=== PATIENT | male | born 1975 | race Caucasian/White ===

== ENCOUNTER 2017-08-13 17:59 | Inpatient (IN) | payer SELFPAY ==
[~2017-08-13] VITALS: Ht 182.9 cm; Wt 64.0 kg
--- NOTE | 2017-08-13 | NUR ---
BP SLIGHTLY HIGH, BUT BETTER THAN PREVIOUS, OTHERWISE VITAL SIGNS WITHIN NORMAL LIMITS. PT STABLE, NO SIGNS OF DISTRESS NOTED AT THIS TIME. BED IN LOWEST POSITION, BED ALARM ON. CALL LIGHT WITHIN REACH, WILL CONTINUE TO MONITOR.
[2017-08-13 18:04] VITALS: BP 113/64
--- NOTE | 2017-08-13 18:11 | NUR ---
PT TAKEN BY WHEELCHAIR TO ER BED 07
--- NOTE | 2017-08-13 18:14 | NUR ---
REPORT GIVEN TO JESENIA LIANG
--- NOTE | 2017-08-13 18:20 | NUR ---
42m bib with c/o intermittent rectal bleeding/diarrhea and n/v x 2 wks. Patient he was diagnosed with colon cancer x 2 weeks. Patient also reports of fatigue and fevers. Patient is aox4 with steady gait. Skin is peri to touch/dry/pale. RR are even and unlabored. Patient is tachycardiac. Er md allan aware of patient status. Awaiting er md andrews. Will continue to monitor.
--- NOTE | 2017-08-13 18:20 | NUR ---
Patient reports of 7/10 "sharp" non radiating abdomen pain to all four quadrants.
[2017-08-13] MEDS ORDERED: NACL 0.9% 1,000 ML IV SCH (18:27)
[2017-08-13] MEDS ORDERED: ONDANSETRON 4 MG ODT PO ONE (18:30)
[2017-08-13] MEDS ORDERED: KETOROLAC 30 MG/ML VIAL IVP ONE (18:30)
--- NOTE | 2017-08-13 18:48 | NUR ---
xray by bedside
--- NOTE | 2017-08-13 19:02 | NUR ---
pt to ct via gabby accompanied by respiratory support technician
[2017-08-13 19:04] LABS: BASOPHILS % (AUTO) 0.2 % (0.0-2.0); EOSINOPHILS % (AUTO) 0.7 % (0.0-4.0); HEMATOCRIT 34.9 % (36-52); LYMPHOCYTES # (AUTO) 0.8 K/uL (2.0-11.5); LYMPHOCYTES % (AUTO) 12.3 % (20.5-51.1); MEAN CORPUSCULAR HEMOGLOBIN 30 pg (27-31); MEAN CORPUSCULAR HGB CONC 34 g/dL (33-37); MEAN CORPUSCULAR VOLUME 88.4 fL (80-94); MONOCYTES # (AUTO) 0.6 K/uL (0.8-1.0); MONOCYTES % (AUTO) 9.2 % (1.7-9.3); NEUTROPHILS % (AUTO) 77.6 % (42.2-75.2); PLATELET COUNT (AUTO) 216 K/uL (140-450); RED BLOOD CELL COUNT(AUTO) 3.95 MIL/uL (4.20-6.10); RED CELL DISTRIBUTION WIDTH 12.9 % (11.6-13.7); WHITE BLOOD COUNT (AUTO) 6.4 K/uL (4.8-10.8)
--- NOTE | 2017-08-13 19:07 | NUR ---
patient returned from ct via gurney accompanied by driver license technician
--- NOTE | 2017-08-13 19:09 | NUR ---
Pt report given to Concepcion BA. Transfer of care at this time.
[2017-08-13 19:10] LABS: ANION GAP 13.6 (8-16); CREATININE 0.9 mg/dL (0.7-1.3); POTASSIUM 3.6 mmol/L (3.5-5.1)
[2017-08-13 19:16] LABS: ALBUMIN 2.2 g/dL (3.4-5.0); TOTAL BILIRUBIN 0.4 mg/dL (0.0-1.0)
[2017-08-13] MEDS ORDERED: LEVOFLOXACIN 750 MG/D5W PREMIX 150 ML IV ONE (20:00)
[2017-08-13] MEDS ORDERED: VANCOMYCIN 1,000 MG in DEXTROSE 5% 250 ML IV ONE (20:00)
--- NOTE | 2017-08-13 20:00 | NUR ---
Patient appears to be resting comfortably in bed. Vital Signs within normal limits. Respirations even and unlabored.
[2017-08-13] MEDS ORDERED: VANCOMYCIN 1,000 MG VIAL ONE (20:06)
[2017-08-13] MEDS ORDERED: MORPHINE SULFATE 4 MG/ML SYR IVP PRN (20:40)
[2017-08-13] MEDS ORDERED: ONDANSETRON 4 MG/2 ML VIAL IM/IVP PRN (20:40)
[2017-08-13] MEDS ORDERED: DOCUSATE SODIUM 100 MG GELCAP PO PRN (20:40)
[2017-08-13] MEDS ORDERED: HYDROcodone/APAP 7.5/325 MG 1 TAB PO PRN (20:40)
--- NOTE | 2017-08-13 21:09 | NUR ---
Patient will be admitted to care of [facility]. Admited to TELE. Will go to room 119B. Belongings list completed. BEDSIDE Report to CHINO BA.
[2017-08-13 21:13] LABS: PROTHROMBIN TIME 11.3 secs (10.8-13.4)
--- NOTE | 2017-08-13 21:20 | NUR ---
PT ARRIVED VIA GURNEY TO UNIT, AND AMBULATED FROM HALLWAY TO BED. RECEIVED REPORT AT PT BEDSIDE FROM SENIOR ANALYST MARKET [employer]TELLIGENCE, FOR CONTINUITY OF CARE. PATIENT IS A/OX4 ON ROOM AIR. ABLE TO MAKE NEEDS KNOWN, ABLE TO FOLLOW COMMANDS. PT SKIN IS INTACT. PATIENT HAS IV TO RIGHT FOREARM, ASYMPTOMATIC, INTACT, PATENT. RESPIRATIONS EVEN AND UNLABORED. UPDATED BOARD. VITAL SIGNS WITHIN NORMAL LIMITS. PT STABLE, NO SIGNS OF DISTRESS NOTED AT THIS TIME. BED IN LOWEST POSITION, BED ALARM ON. CALL LIGHT WITHIN REACH, WILL CONTINUE TO MONITOR.
[2017-08-13 21:24] LABS: CHOL/HDL RATIO 3.5 (1-4.5); FREE T4 (FREE THYROXINE) 1.19 ng/dL (0.76-1.46); PHOSPHORUS 3.3 mg/dL (2.5-4.9); THYROID STIMULATING HORMONE 0.99 uIU/mL (0.34-3.74)
--- NOTE | 2017-08-13 21:50 | NUR ---
DR FRIEND PERFORMED RECTAL EXAM AND NOTIFIED PT THAT, THERE IS, IN FACT BLOOD IN HIS STOOL.
[2017-08-13] MEDS: NACL 0.9% 1,000 ML IV SCH (22:00)
[2017-08-13 23:07] VITALS: BP 101/64
[2017-08-14] VITALS (7 sets, daily range): BP systolic 102–124; BP diastolic 51–70
--- NOTE | 2017-08-14 04:00 | NUR ---
LOW GRADE FEVER OF 100.5, OTHER THAN THAT VITAL SIGNS WITHIN NORMAL LIMITS. WILL GIVE TYLENOL BOR BRAJDOEN PT STABLE, NO SIGNS OF DISTRESS NOTED AT THIS TIME. BED IN LOWEST POSITION, BED ALARM ON. CALL LIGHT WITHIN REACH, WILL CONTINUE TO MONITOR.
--- NOTE | 2017-08-14 04:00 | NUR ---
VITAL SIGNS WITHIN NORMAL LIMITS. PT STABLE, NO SIGNS OF DISTRESS NOTED AT THIS TIME. BED IN LOWEST POSITION, BED ALARM ON. CALL LIGHT WITHIN REACH, WILL CONTINUE TO MONITOR. Addendum: 08/14/17 at 0613 by Marian Ash RN WRONG INPUT
[2017-08-14 05:46] LABS: BASOPHILS % (AUTO) 0.1 % (0.0-2.0); EOSINOPHILS # (AUTO) 0.2 K/uL (0-0.4); EOSINOPHILS % (AUTO) 3.4 % (0.0-4.0); HEMATOCRIT 32.2 % (36-52); HEMOGLOBIN 11.1 g/dL (12.0-18.0); LYMPHOCYTES # (AUTO) 0.6 K/uL (2.0-11.5); LYMPHOCYTES % (AUTO) 8.7 % (20.5-51.1); MEAN CORPUSCULAR HEMOGLOBIN 31 pg (27-31); MEAN CORPUSCULAR HGB CONC 34 g/dL (33-37); MONOCYTES # (AUTO) 0.5 K/uL (0.8-1.0); MONOCYTES % (AUTO) 7.6 % (1.7-9.3); NEUTROPHILS # (AUTO) 5.4 K/uL (1.8-7.7); NEUTROPHILS % (AUTO) 80.2 % (42.2-75.2); PLATELET COUNT (AUTO) 197 K/uL (140-450); RED BLOOD CELL COUNT(AUTO) 3.61 MIL/uL (4.20-6.10); RED CELL DISTRIBUTION WIDTH 12.9 % (11.6-13.7); WHITE BLOOD COUNT (AUTO) 6.7 K/uL (4.8-10.8)
[2017-08-14 06:27] LABS: PHOSPHORUS 2.8 mg/dL (2.5-4.9)
[2017-08-14 06:31] LABS: ANION GAP 9.6 (8-16); CARBON DIOXIDE 29.3 mmol/L (21-32); CREATININE 0.8 mg/dL (0.7-1.3); POTASSIUM 3.9 mmol/L (3.5-5.1)
[2017-08-14] MEDS: ACETAMINOPHEN 325 MG TAB PO PRN ×2 (06:42→16:38)
--- NOTE | 2017-08-14 06:42 | NUR ---
ADMINISTERED TYLENOL FOR TEMP 101.5, INITIATED COOLING MEASURES.
--- NOTE | 2017-08-14 07:26 | NUR ---
ENDORSED PT TO DAY SHIFT RN FOR CONTINUITY OF CARE. PT IN STABLE CONDITION.
--- NOTE | 2017-08-14 08:00 | NUR ---
RECEIVED REPORT FROM CHINO BA FOR CONTINUITY OF CARE PT AWAKE A/OX4 NO S/S OF RESP DISTRESS NOTED NO COMPLAI OF PAIN ABLE TO MAKE NEEDS KNOWN. IV SITE RT AC GAUGE 20 INTACT AND PATENT. IVF INFUSING WELL . PLAN OF CARE DISCUSSED WITH THE PATIENT VITALS STABLE WILL CONTINUE TO MONITOR.
--- NOTE | 2017-08-14 09:00 | NUR ---
DUE MEDS GIVEN TOLERATED WELL. KEPT PATIENT NPO NO N/V . WAITING FOR DR TOMAS TO VISIT PATIENT.
[2017-08-14] MEDS: LACTOBACILLUS RHAMNOSUS GG 1 EACH CAP PO SCH (09:13)
--- NOTE | 2017-08-14 09:50 | NUR ---
PATIENT HAS BEEN SCREENED AND CATEGORIZED HIGH NUTRITION RISK. PATIENT WILL BE SEEN WITHIN 1-2 DAYS OF ADMISSION. 08/14/17 08/15/[address]
[2017-08-14] MEDS: NACL 0.9% 1,000 ML IV SCH ×2 (13:33→22:50)
--- NOTE | 2017-08-14 16:24 | NUR ---
PATIENT TEMP 102.8 TYLENOL 650 MG PO GIVEN WILL NOTIFY
--- NOTE | 2017-08-14 18:52 | NUR ---
SENT STOOL TO LAB FOR C-DIFF, WBC AND STOOL CULTURE , PATIENT HAS WHITISH STUFF ON HIS TONGUE NOTIFIED DR FUENTES. SAFETY MAINTAINED CALL LIGHT IN REACH
--- NOTE | 2017-08-14 19:15 | NUR ---
RECEIVED PT IN STABLE CONDITION FROM AM NURSE. AWAKE,ALERT AND ORIENTED X4. ON COMPUTER TESTER. NO C/O ANY DISCOMFORT NOR PAIN NOTED. HAS IVF INFUSING WELL ON THE RT AC #20. CLEAR AND PATENT. PLAN OF CARE DISCUSSED AND VERBALIZED UNDERSTANDING. BED ON LOW POSITION. CALL LIGHT AND URINAL PLACED WITHIN EASY REACH. ON CONTACT ISOLATION FOR R/O STOOL S DIFF. PT MADE AWARE ABOUT PRECAUTIONS. WILL CONITNUE TO MONITOR.
[2017-08-14] MEDS: LEVOFLOXACIN 750 MG/D5W PREMIX 150 ML IV SCH (20:04)
[2017-08-14] MEDS ORDERED: BACTRIM IV PER PHARMACY MC PRN (20:55)
[2017-08-14] MEDS ORDERED: PIPER/TAZO 3.375GM/D5W PREMIX 50 ML IV SCH (21:00)
--- NOTE | 2017-08-14 21:30 | NUR ---
PT TRANSFERRED TO ROOM 117 FOR AIRBORNE PRECAUTION PER MD ORDERED. PT MADE AWARE .
--- NOTE | 2017-08-14 22:30 | NUR ---
NEED SPUTUM SPECIMEN FOR AFB/ SMEAR,PNEUMOCYSTIS SMEAR AND CULTURE. CONTAINER PROVIDED AT BEDSIDE AND RT ALSO INSTRUCTED PT .
[2017-08-14] MEDS ORDERED: SULFAMETH/TRIMETH 80/16MG-ML 10 ML VIAL IV ONE (22:34)
[2017-08-14] MEDS: SULFAMETH IV SCH (22:50)
[2017-08-14] MEDS: TRIMETH IV SCH (22:50)
[2017-08-14] MEDS: DEXTROSE 5% IV SCH (22:50)
--- NOTE | 2017-08-15 02:00 | NUR ---
SLEEPING WELL. NO S/S OF ANY DISCOMFORT NOR PAIN NOTED. WILL CONTINUE TO MONITOR.
[2017-08-15 04:45] VITALS: BP 117/68
--- NOTE | 2017-08-15 04:45 | NUR ---
TEMP ELEVATED 100.6 TYLENOL 650 MFG PO GIVEN. ENCOURAGED TO DRINK FLUIDS. WILL CONTINUE TO MONITOR.
[2017-08-15] MEDS: ACETAMINOPHEN 325 MG TAB PO PRN (04:55)
[2017-08-15] MEDS: NACL 0.9% 1,000 ML IV SCH ×2 (05:58→23:35)
--- NOTE | 2017-08-15 06:00 | NUR ---
LATEST TEMP TAKNE RESULT 99.6. WILL CONTINUE TO MONITOR.
[2017-08-15] MEDS ORDERED: SULFAMETH/TRIMETH 80/16MG-ML 10 ML VIAL IV ONE (06:18)
[2017-08-15 06:22] LABS: T4 (THYROXINE) 8.3 ug/dL (4.5-12.0)
[2017-08-15] MEDS: TRIMETH IV SCH ×3 (06:31→23:58)
[2017-08-15] MEDS: SULFAMETH IV SCH ×3 (06:31→23:58)
[2017-08-15] MEDS: DEXTROSE 5% IV SCH ×3 (06:31→23:58)
--- NOTE | 2017-08-15 07:28 | NUR ---
ENDORSED PT IN STABLE CONDITION TO AM NURSE.
--- NOTE | 2017-08-15 07:29 | NUR ---
RECEIVED REPORT FROM NIGHT RN AT PT BEDSIDE. PATIENT IS ALERT AND ORIENTED. ON 1L NC, NO S/S OF ACUTE DISTRESS NOTED. DENIES PAIN. DENIES LOOSE BM. DISCUSSED WITH PATIENT CURRENT PLAN OF CARE, IN AGREEMENT, ALL NEEDS MET AT THIS TIME. IV SITE PATENT AND INTACT. CALL LIGHT WITHIN REACH.
[2017-08-15 08:00] VITALS: BP 106/65
[2017-08-15] MEDS: LACTOBACILLUS RHAMNOSUS GG 1 EACH CAP PO SCH (08:40)
[2017-08-15] MEDS ORDERED: FLUCONAZOLE 100 MG TAB PO SCH ×3 (09:00→10:00)
[2017-08-15] MEDS ORDERED: COMMUNICATION ORDER MC ONE (10:40)
--- NOTE | 2017-08-15 10:48 | NUR ---
REVIEWED AFB CULTURE ORDERED ADVISED DR. HEBER MARAVILLA THAT AN ORDER WAS PLACED FOR A ONE TIME ORDER FOR HYPERTONIC SOLUTION 3% VIA INH TO INDUCE SPUTUM STATES "THATS OK"
--- NOTE | 2017-08-15 11:08 | NUR ---
RECHECKED WITH PATIENT ON SPUTUM CULTURE FOR AFB PATIENT STATES I'M UNABLE TO PRODUCE. REVIEWED HYPERTONIC SOLUTION 3% TO INDUCE SPUTUM PATIENT STATES THAT'S FINE AND UNDERSTANDS SPECIMEN CUP REMAINS ON PATIENT TABLE
[2017-08-15 12:00] VITALS: BP 111/70
--- NOTE | 2017-08-15 12:42 | NUR ---
PATIENT TAKING SHOWER. NO S/S OF ACUTE DISTRESS NOTED. FAMILY AT BEDSIDE. PT OFF TELE MONITORING AT THIS TIME.
[2017-08-15] MEDS: SODIUM CHLORIDE 3% FOR INHALATION INH PRN ×2 (14:09→19:50)
--- NOTE | 2017-08-15 14:11 | NUR ---
08/15/17 RD INITIAL ASSESSMENT COMPLETED PLEASE REFER TO NUTRITION ASSESSMENT UNDER CARE ACTIVITY FOR ESTIMATED NUTRITIONAL NEEDS. 1. CONTINUE REGULAR DIET TOLERATED 2. RECOMMEND PROVIDING SNACKS TID. 3. RD TO FOLLOW-UP 2-3 DAYS, HIGH RISK SINDHU SELBY, RD
--- NOTE | 2017-08-15 14:20 | NUR ---
SPUTUM SPECIMEN CUP ON PATIENT TABLE ADVISED PATIENT THAT IF ANY SPUTUM IS PRODUCED TO PRESS CALL LIGHT AND INFORM ACCOUNTING SPECIALIST RN AND APPLIQUE SEWER TO CHECK OCCASIONALLY TO SPUTUM SAMPLE /RN NOTIFIED OF FOREMENTIONED AND SODIUM CHLORIDE 3% HHN THERAPY
--- NOTE | 2017-08-15 15:00 | NUR ---
PATIENT SPUTUM SAMPLE ONE OF THREE SENT TO LAB. MADE OF CURRENT PLAN OF CARE. IN AGREEMENT.
[2017-08-15 16:00] VITALS: BP 113/72
--- NOTE | 2017-08-15 19:11 | NUR ---
PT CURRENTLY EATING AT THIS TIME WILL COME BACK TO GIVE TX LATER.
--- NOTE | 2017-08-15 19:20 | NUR ---
SBAR REPORT GIVEN TO RN ROSS AT PT BEDSIDE. NO S/S OF ACUTE DISTRESS NOTED.
--- NOTE | 2017-08-15 19:21 | NUR ---
PATIENT REPORT RECEIVED FROM MORNING NURSE AT BEDSIDE. PATIENT IS AWAKE, ALERT AND ORIENTED. NO SIGNS AND SYMPTOMS OF DISTRESS NOTED. PATIENT ON O2 1L NC. IV SITE NOTED ON RIGHT ARM, IVF INFUSING WELL. PLAN OF CARE DISCUSSED WITH PATIENT. PATIENT VERBALIZED UNDERSTANDING. BED IN LOWEST POSITION, SIDE RAILS UP AND CALL LIGHT WITHIN REACH. AIRBORNE PRECAUTIONS IN PLACE. WILL CONTINUE TO MONITOR.
--- NOTE | 2017-08-15 19:50 | NUR ---
BREATHING TX DONE. EXPLAINED TO PT TO EXPECTORATE INTO SPUTUM CUP SO WE CAN GET A SAMPLE. LEFT CUP AT BEDSIDE. WILL CONT TO MONITOR PT.
[2017-08-15 20:00] VITALS: BP 108/64
[2017-08-15] MEDS ORDERED: LEVOFLOXACIN 750 MG/D5W PREMIX 150 ML IV ONE (20:04)
[2017-08-15] MEDS: LEVOFLOXACIN 750 MG/D5W PREMIX 150 ML IV SCH (20:12)
--- NOTE | 2017-08-15 21:00 | NUR ---
UNABLE TO GET DUE MEDS FROM [facility], HAD TO OVERRIDE. NOTIFIED PHARMACY.
--- NOTE | 2017-08-15 23:00 | NUR ---
PATIENT UNABLE TO EXPECTORATE SPUTUM AT THIS TIME. NOTIFIED RT. RT HAD TRIED TO INDUCE SPUTUM EARLIER, BUT PATIENT UNABLE TO EXPECTORATE. PATIENT STATES THAT HE'S BEEN ONLY HAVING DRY COUGH WITH NO PHLEGM.
[2017-08-16] VITALS: BP 107/61
[2017-08-16] MEDS ORDERED: ACETAMINOPHEN 325 MG TAB ONE ×2 (00:02→06:23)
[2017-08-16] MEDS: ACETAMINOPHEN 325 MG TAB PO PRN ×3 (00:07→16:36)
--- NOTE | 2017-08-16 00:45 | NUR ---
CHECKED ON PATIENT. PATIENT IS ASLEEP. NO SIGNS AND SYMPTOMS OF DISTRESS NOTED. WILL CONTINUE TO MONITOR.
[2017-08-16 05:30] VITALS: BP 104/72
[2017-08-16] MEDS: SULFAMETH IV SCH ×3 (06:10→23:31)
[2017-08-16] MEDS: TRIMETH IV SCH ×3 (06:10→23:31)
[2017-08-16] MEDS: DEXTROSE 5% IV SCH ×3 (06:10→23:31)
[2017-08-16 06:31] LABS: BASOPHILS % (AUTO) 0.2 % (0.0-2.0); EOSINOPHILS # (AUTO) 0.1 K/uL (0-0.4); HEMATOCRIT 32.2 % (36-52); LYMPHOCYTES # (AUTO) 0.9 K/uL (2.0-11.5); MEAN CORPUSCULAR HEMOGLOBIN 30 pg (27-31); MEAN CORPUSCULAR HGB CONC 34 g/dL (33-37); MEAN CORPUSCULAR VOLUME 88.9 fL (80-94); MONOCYTES # (AUTO) 0.5 K/uL (0.8-1.0); MONOCYTES % (AUTO) 8.3 % (1.7-9.3); NEUTROPHILS % (AUTO) 76.5 % (42.2-75.2); PLATELET COUNT (AUTO) 230 K/uL (140-450); RED BLOOD CELL COUNT(AUTO) 3.62 MIL/uL (4.20-6.10); RED CELL DISTRIBUTION WIDTH 13.1 % (11.6-13.7); WHITE BLOOD COUNT (AUTO) 6.6 K/uL (4.8-10.8)
[2017-08-16 06:40] LABS: ANION GAP 10.6 (8-16); CARBON DIOXIDE 25.6 mmol/L (21-32); CREATININE 0.9 mg/dL (0.7-1.3); POTASSIUM 4.2 mmol/L (3.5-5.1)
[2017-08-16 06:49] LABS: MAGNESIUM 1.8 mg/dL (1.8-2.4); PHOSPHORUS 3.6 mg/dL (2.5-4.9)
--- NOTE | 2017-08-16 07:16 | NUR ---
PT DOES NOT WANT ANYTHING DONE NOW PER JESENIA HURTADO AND WANTS TO SLEEP AT THE MOMENT. WILL TRY SPUTUM INDUCTION LATER.
--- NOTE | 2017-08-16 07:25 | NUR ---
RECEIVED PATIENT REPORT AT BEDSIDE. PATIENT AWAKE, ALERT AND ORIENTED. NO S/S OF DISTRESS. PATIENT IS CURRENTLY RECEIVING BREATHING TX. PATIENT DENIES PAIN. PATIENT ON TELE MONITORING. BED LOWERED WITH CALL LIGHT WITHIN REACH. WILL CONTINUE TO MONITOR
--- NOTE | 2017-08-16 07:38 | NUR ---
PATIENT REPORT GIVEN TO MORNING NURSE AT BEDSIDE. PATIENT IS IN STABLE CONDITION
[2017-08-16] MEDS: SODIUM CHLORIDE 3% FOR INHALATION INH PRN (07:52)
--- NOTE | 2017-08-16 07:56 | NUR ---
SPUTUM INDUCTION DONE WITH 3% SODIUM CHLORIDE HHN THERAPY. NO SOB OR DISTRESS NOTED. JESENIA ZHOU AT BEDSIDE. REINSTRUCTED PT TO GIVE A SPUTUM SAMPLE AND TO LET ME LOCK AND DAM EQUIPMENT REPAIRER KNOW WHEN HE HAS IT. SPECIMEN CUP AT BEDSIDE. PT VERBALIZED UNDERSTANDING BUT PT HAS NO FLEM AT MOMENT. JESENIA ZHOU AWARE.
[2017-08-16 08:00] VITALS: BP 99/62
--- NOTE | 2017-08-16 10:45 | NUR ---
PATIENT AWAKE IN HIS ROOM WATCHING TELEVISION. PATIENT REPORTS OF HAVING A BM. PATIENT DENIES BLOOD IN THE STOOL.
[2017-08-16] MEDS: LACTOBACILLUS RHAMNOSUS GG 1 EACH CAP PO SCH (10:54)
[2017-08-16] MEDS: FLUCONAZOLE 100 MG TAB PO SCH (10:54)
[2017-08-16 12:00] VITALS: BP 111/67
[2017-08-16 16:00] VITALS: BP 108/76
--- NOTE | 2017-08-16 16:36 | NUR ---
TEMP 101. PRN TYLENOL ADMINISTERED. COOLING MEASURES IN PLACE. WILL CONTINUE TO MONITOR
--- NOTE | 2017-08-16 18:45 | NUR ---
TEMP TAKEN ORALLY. TEMPERATURE 98.7. NO S/S OF DISTRESS NOTED
--- NOTE | 2017-08-16 19:30 | NUR ---
PATIENT REPORT GIVEN TO THE MODEL MAKER FIREARMS NURSE. PATIENT ENDORSED IN STABLE CONDITION
--- NOTE | 2017-08-16 19:31 | NUR ---
PATIENT REPORT RECEIVED FROM MORNING NURSE AT BEDSIDE. PATIENT IS AWAKE, ALERT AND ORIENTED. NO SIGNS AND SYMPTOMS OF DISTRESS NOTED. PATIENT ON O2 2L NC. IV SITE NOTED ON RIGHT ARM, IVF INFUSING WELL. PLAN OF CARE DISCUSSED WITH PATIENT. PATIENT VERBALIZED UNDERSTANDING. BED IN LOWEST POSITION, SIDE RAILS UP AND CALL LIGHT WITHIN REACH. AIRBORNE PRECAUTIONS IN PLACE. WILL CONTINUE TO MONITOR.
[2017-08-16 20:00] VITALS: BP 121/77
[2017-08-16] MEDS: NACL 0.9% 1,000 ML IV SCH (20:00)
[2017-08-16] MEDS: LEVOFLOXACIN 750 MG/D5W PREMIX 150 ML IV SCH (20:08)
--- NOTE | 2017-08-16 20:30 | NUR ---
MEDICATION EDUCATION GIVEN. MEDICATION ADMINISTERED ORDERED. PATIENT TOLERATING WELL. WILL CONTINUE TO MONITOR.
--- NOTE | 2017-08-16 23:00 | NUR ---
MEDICATION EDUCATION GIVEN. PATIENT VERBALIZED UNDERSTANDING. DUE ANTIBIOTICS GIVEN ORDERED. WILL CONTINUE TO MONITOR
[2017-08-17] VITALS: BP 104/61
--- NOTE | 2017-08-17 | NUR ---
CHECKED ON PATIENT. PATIENT IS ASLEEP. NO SIGNS AND SYMPTOMS OF DISTRESS NOTED. BREATHING EVEN AND UNLABORED. WILL CONTINUE TO MONITOR.
--- NOTE | 2017-08-17 02:30 | NUR ---
CHECKED ON PATIENT. PATIENT IS ASLEEP. NO SIGNS AND SYMPTOMS OF DISTRESS NOTED. BREATHING EVEN AND UNLABORED. WILL CONTINUE TO MONITOR.
[2017-08-17 05:30] VITALS: BP 108/59
[2017-08-17] MEDS: TRIMETH IV SCH ×3 (06:00→23:38)
[2017-08-17] MEDS: DEXTROSE 5% IV SCH ×3 (06:00→23:38)
[2017-08-17] MEDS: SULFAMETH IV SCH ×3 (06:00→23:38)
[2017-08-17] MEDS: ACETAMINOPHEN 325 MG TAB PO PRN ×2 (06:05→21:13)
[2017-08-17 06:36] LABS: BASOPHILS % (AUTO) 0.2 % (0.0-2.0); EOSINOPHILS % (AUTO) 0.5 % (0.0-4.0); HEMATOCRIT 33.7 % (36-52); HEMOGLOBIN 11.6 g/dL (12.0-18.0); LYMPHOCYTES # (AUTO) 0.9 K/uL (2.0-11.5); LYMPHOCYTES % (AUTO) 11.5 % (20.5-51.1); MEAN CORPUSCULAR HEMOGLOBIN 31 pg (27-31); MEAN CORPUSCULAR HGB CONC 34 g/dL (33-37); MEAN CORPUSCULAR VOLUME 88.5 fL (80-94); MONOCYTES # (AUTO) 0.5 K/uL (0.8-1.0); MONOCYTES % (AUTO) 6.6 % (1.7-9.3); NEUTROPHILS % (AUTO) 81.2 % (42.2-75.2); PLATELET COUNT (AUTO) 236 K/uL (140-450); RED CELL DISTRIBUTION WIDTH 12.8 % (11.6-13.7); WHITE BLOOD COUNT (AUTO) 7.4 K/uL (4.8-10.8)
[2017-08-17 06:43] LABS: ANION GAP 12.1 (8-16); CARBON DIOXIDE 24.4 mmol/L (21-32); CREATININE 0.8 mg/dL (0.7-1.3); POTASSIUM 4.5 mmol/L (3.5-5.1)
[2017-08-17 06:48] LABS: MAGNESIUM 1.7 mg/dL (1.8-2.4); PHOSPHORUS 2.3 mg/dL (2.5-4.9)
--- NOTE | 2017-08-17 07:17 | NUR ---
PATIENT REPORT GIVEN TO MORNING NURSE AT BEDSIDE. PATIENT IS IN STABLE CONDITION
[2017-08-17] MEDS: NACL 0.9% 1,000 ML IV SCH (07:58)
[2017-08-17 08:00] VITALS: BP 98/56
--- NOTE | 2017-08-17 08:00 | NUR ---
TEMP 100.4. NO S/S OF DISTRESS. PATIENT WAS GIVEN TYLENOL TWO HOURS AGO. COOLING MEASURES IN PLACE. WILL CONTINUE TO MONITOR.
[2017-08-17] MEDS: FLUCONAZOLE 100 MG TAB PO SCH (08:57)
[2017-08-17] MEDS: LACTOBACILLUS RHAMNOSUS GG 1 EACH CAP PO SCH (08:57)
--- NOTE | 2017-08-17 08:59 | NUR ---
TEMP RECHECKED ORALLY. TEMP 98.4. PATIENT DENIES PAIN OR DISCOMFORT. NO S/S OF DISTRESS NOTED. WILL CONTINUE TO MONITOR
[2017-08-17 12:00] VITALS: BP 112/63
[2017-08-17] MEDS: ALBUTEROL SULFATE/IPRATROPIU 3 ML SOL IH SCH ×2 (12:21→20:46)
--- NOTE | 2017-08-17 14:26 | NUR ---
08/17/17 RD FOLLOW UP COMPLETED PLEASE REFER TO NUTRITION PROGRESS NOTE UNDER CARE ACTIVITY FOR ESTIMATED NUTRITIONAL NEEDS. 1. CONTINUE REGULAR DIET WITH SNACKS TID TOLERATED 2. RECOMMEND BOOST PLUS GIVEN EVERY DAY AT DINNER. 3. RD TO FOLLOW-UP 3-5 DAYS, MODERATE RISK SINDHU SELBY, RD
[2017-08-17 16:00] VITALS: BP 123/80
--- NOTE | 2017-08-17 17:45 | NUR ---
PATIENT AWAKE IN BED EATING DINNER. FAMILY MEMBER PRESENT AT BEDSIDE. NO S/S OF DISTRESS NOTED
[2017-08-17] MEDS: SODIUM PHOS / POTASSIUM PHOS 1 PKT PDR PO SCH (18:43)
--- NOTE | 2017-08-17 19:30 | NUR ---
PATIENT REPORT GIVE TO THE BARREL DEDENTING MACHINE OPERATOR NURSE. PATIENT ENDORSED IN STABLE CONDITION
--- NOTE | 2017-08-17 19:31 | NUR ---
PATIENT REPORT RECEIVED FROM MORNING NURSE AT BEDSIDE. PATIENT IS AWAKE, ALERT AND ORIENTED. NO SIGNS AND SYMPTOMS OF DISTRESS NOTED. PATIENT ON O2 3L NC. IV SITE NOTED ON RIGHT ARM, SALINE LOCKED. PLAN OF CARE DISCUSSED WITH PATIENT. PATIENT VERBALIZED UNDERSTANDING. BED IN LOWEST POSITION, SIDE RAILS UP AND CALL LIGHT WITHIN REACH. AIRBORNE PRECAUTIONS IN PLACE. WILL CONTINUE TO MONITOR.
[2017-08-17 20:00] VITALS: BP 119/66
[2017-08-17] MEDS: BUDESONIDE 0.5 MG/2 ML NEBU INH SCH (20:46)
[2017-08-17] MEDS: LEVOFLOXACIN 750 MG/D5W PREMIX 150 ML IV SCH (20:52)
--- NOTE | 2017-08-17 21:00 | NUR ---
MEDICATION EDUCATION GIVEN. PATIENT VERBALIZED UNDERSTANDING. MEDICATION ADMINISTERED ORDERED. WILL CONTINUE TO MONITOR.
--- NOTE | 2017-08-17 21:00 | NUR ---
PATIENT'S TEMPERATURE 102. COOLING MEASURES PUT IN PLACE. PATIENT MEDICATED ORDERED. WILL NOTIFY
[2017-08-17] MEDS: MAGNESIUM OXIDE 400 MG TAB PO SCH (21:13)
--- NOTE | 2017-08-17 21:30 | NUR ---
NOTIFIED DR. KNICAID OF PATIENT'S ELEVATED TEMPERATURE
--- NOTE | 2017-08-17 23:00 | NUR ---
RECHECKED PATIENT'S TEMP. TEMP IS 98.6
[2017-08-18] VITALS: BP 103/56
--- NOTE | 2017-08-18 | NUR ---
CHECKED ON PATIENT. PATIENT IS ASLEEP. NO SIGNS AND SYMPTOMS OF DISTRESS NOTED. BREATHING EVEN AND UNLABORED. WILL CONTINUE TO MONITOR.
[2017-08-18] MEDS: NACL 0.9% 1,000 ML IV SCH ×2 (00:38→17:38)
--- NOTE | 2017-08-18 02:00 | NUR ---
CHECKED ON PATIENT. PATIENT IS ASLEEP. NO SIGNS AND SYMPTOMS OF DISTRESS NOTED. BREATHING EVEN AND UNLABORED. WILL CONTINUE TO MONITOR.
[2017-08-18 04:00] VITALS: BP 108/65
[2017-08-18] MEDS: TRIMETH IV SCH ×3 (06:00→23:20)
[2017-08-18] MEDS: SULFAMETH IV SCH ×3 (06:00→23:20)
[2017-08-18] MEDS: DEXTROSE 5% IV SCH ×3 (06:00→23:20)
[2017-08-18] MEDS: ACETAMINOPHEN 325 MG TAB PO PRN (06:06)
--- NOTE | 2017-08-18 07:15 | NUR ---
PATIENT REPORT GIVEN TO MORNING NURSE AT BEDSIDE. PATIENT IS IN STABLE CONDITION
--- NOTE | 2017-08-18 07:16 | NUR ---
RECEIVED REPORT FROM THE HAZARDOUS WASTE REMOVER NURSE AT BEDSIDE FOR CONTINUITY OF CARE. PT IS ON AIRBORNE ISOLATION. AWAITING ON 3 AFB RESULTS TO R/O TB. PT IS AWAKE AND ORIENTED. INTRODUCED MYSELF AND UPDATED THE BOARD. V/S WITHIN NORMAL RANGE. ON NC 3L O2. SATURATING AT 93-94%. BREATHING RAPIDLY, SHALLOW. INCREASED O2 TO 4L. LBM 6/ IV ON R AC 20G SL. PT ON STRICT 1&O. WILL CONTINUE TO MONITOR PT.
[2017-08-18] MEDS: ALBUTEROL SULFATE/IPRATROPIU 3 ML SOL IH SCH ×3 (07:18→19:25)
[2017-08-18] MEDS: BUDESONIDE 0.5 MG/2 ML NEBU INH SCH ×2 (07:19→19:25)
[2017-08-18 07:46] LABS: ANION GAP 11.5 (8-16); CARBON DIOXIDE 27.8 mmol/L (21-32); CREATININE 0.8 mg/dL (0.7-1.3); POTASSIUM 5.3 mmol/L (3.5-5.1)
[2017-08-18 07:49] LABS: MAGNESIUM 1.9 mg/dL (1.8-2.4)
[2017-08-18 07:55] LABS: BASOPHILS % (AUTO) 0.2 % (0.0-2.0); EOSINOPHILS # (AUTO) 0.1 K/uL (0-0.4); EOSINOPHILS % (AUTO) 0.9 % (0.0-4.0); HEMATOCRIT 35.9 % (36-52); HEMOGLOBIN 12.3 g/dL (12.0-18.0); LYMPHOCYTES # (AUTO) 0.6 K/uL (2.0-11.5); LYMPHOCYTES % (AUTO) 8.2 % (20.5-51.1); MEAN CORPUSCULAR HEMOGLOBIN 30 pg (27-31); MEAN CORPUSCULAR HGB CONC 34 g/dL (33-37); MONOCYTES # (AUTO) 0.4 K/uL (0.8-1.0); NEUTROPHILS # (AUTO) 6.7 K/uL (1.8-7.7); NEUTROPHILS % (AUTO) 85.7 % (42.2-75.2); PLATELET COUNT (AUTO) 260 K/uL (140-450); RED BLOOD CELL COUNT(AUTO) 4.04 MIL/uL (4.20-6.10); RED CELL DISTRIBUTION WIDTH 12.7 % (11.6-13.7); WHITE BLOOD COUNT (AUTO) 7.8 K/uL (4.8-10.8)
[2017-08-18 08:00] VITALS: BP 104/64
[2017-08-18] MEDS: LACTOBACILLUS RHAMNOSUS GG 1 EACH CAP PO SCH (09:26)
[2017-08-18] MEDS: SODIUM PHOS / POTASSIUM PHOS 1 PKT PDR PO SCH ×2 (09:26→17:35)
[2017-08-18] MEDS: FLUCONAZOLE 100 MG TAB PO SCH (09:27)
[2017-08-18] MEDS: MAGNESIUM OXIDE 400 MG TAB PO SCH ×2 (09:27→20:50)
--- NOTE | 2017-08-18 09:30 | NUR ---
ADMINISTERED MORNING MEDS. PT TOLERATED WELL. EDUCATED PT RE FLUID RESTRICTION. PT VERBALIZED UNDERSTANDING. ALL NEEDS MET. WILL CONTINUE TO MONITOR PT.
--- NOTE | 2017-08-18 09:45 | NUR ---
LAB CALLED. SPUTUM SAMPLE NO GOOD. NEED A NEW SAMPLE. GAVE A SPECIMEN CUP TO PT TO GET ANOTHER SAMPLE.
[2017-08-18 12:00] VITALS: BP 104/65
--- NOTE | 2017-08-18 12:42 | NUR ---
PT WOULD LIKE A SHOWER. NOTIFIED PT THAT WE NEED AN ORDER FOR PT TO SHOWER SINCE HE IS ON THE TELE MONITOR. WILL TALK TO .
--- NOTE | 2017-08-18 14:53 | NUR ---
PER MD, PT SHOULD HAVE A BEDBATH OR WAIT UNTIL TOMORROW FOR SHOWER. WILL NOTIFY PT.
--- NOTE | 2017-08-18 15:23 | NUR ---
ADMINISTERED ABX. PT TOLERATING WELL. NOTIFIED PT ABOUT WAITING ON THE SHOWER. PT VERBALIZED UNDERSTANDING. WILL CONTINUE TO MONITOR PT.
[2017-08-18 16:10] VITALS: BP 110/71
--- NOTE | 2017-08-18 17:43 | NUR ---
ADMINISTERED SCHEDULED MED. PT TOLERATED WELL. STARTED THE NS AT 60ML. NO COMPLAINTS AT THIS TIME. WILL CONTINUE TO MONITOR PT.
--- NOTE | 2017-08-18 19:25 | NUR ---
ENDORSED PT TO THE SERVICER COIN MACHINES NURSE AT BEDSIDE FOR CONTINUITY OF CARE. PT IS IN STABLE CONDITION.
--- NOTE | 2017-08-18 19:26 | NUR ---
RECEIVED REPORT AT PT BEDSIDE FROM DAYS SHIFT RN, FOR CONTINUITY OF CARE. PATIENT IS A/OX4 ON 4L O2 VIA NASAL CANNULA. ABLE TO MAKE NEEDS KNOWN, ABLE TO FOLLOW COMMANDS. PT SKIN IS INTACT. PATIENT HAS IV TO RIGHT AC, ASYMPTOMATIC, INTACT, PATENT. RESPIRATIONS EVEN AND UNLABORED. UPDATED BOARD. VITAL SIGNS WITHIN NORMAL LIMITS. PT STABLE, NO SIGNS OF DISTRESS NOTED AT THIS TIME. BED IN LOWEST POSITION, BED ALARM ON. CALL LIGHT WITHIN REACH, WILL CONTINUE TO MONITOR.
[2017-08-18 19:59] VITALS: BP 112/67
--- NOTE | 2017-08-18 20:50 | NUR ---
ADMINISTERED SCHEDULED MEDICATIONS PT TOLERATED WELL. PT STARTED COUGHING AND VOMITING SOON AFTER. CALLED RESIDENT FOR SOME COUGH MEDICATION PER PT REQUEST. DR WILL ORDER COUGH MEDICATION.
[2017-08-18] MEDS: LEVOFLOXACIN 750 MG/D5W PREMIX 150 ML IV SCH (20:51)
[2017-08-18] MEDS ORDERED: guaiFENesin/CODEINE 100/10MG 5 ML UDC PO PRN (21:00)
--- NOTE | 2017-08-18 21:35 | NUR ---
ADMINISTERED COUGH MEDICATION, PT TOLERATED WELL. PT STABLE, NO SIGNS OF DISTRESS NOTED AT THIS TIME. BED IN LOWEST POSITION, BED ALARM ON. CALL LIGHT WITHIN REACH, WILL CONTINUE TO MONITOR.
[2017-08-19] VITALS: BP 126/61
--- NOTE | 2017-08-19 | NUR ---
VITAL SIGNS WITHIN NORMAL LIMITS. PT STABLE, NO SIGNS OF DISTRESS NOTED AT THIS TIME. BED IN LOWEST POSITION, BED ALARM ON. CALL LIGHT WITHIN REACH, WILL CONTINUE TO MONITOR.
[2017-08-19 04:00] VITALS: BP 107/64
[2017-08-19] MEDS: DEXTROSE 5% IV SCH ×2 (06:05→18:05)
[2017-08-19] MEDS: TRIMETH IV SCH ×2 (06:05→18:05)
[2017-08-19] MEDS: SULFAMETH IV SCH ×2 (06:05→18:05)
[2017-08-19] MEDS: ALBUTEROL SULFATE/IPRATROPIU 3 ML SOL IH SCH ×3 (07:08→19:07)
[2017-08-19] MEDS: BUDESONIDE 0.5 MG/2 ML NEBU INH SCH ×2 (07:08→19:07)
--- NOTE | 2017-08-19 07:08 | NUR ---
ENDORSED PT TO DAY SHIFT RN FOR CONTINUITY OF CARE. PT IN STABLE CONDITION.
--- NOTE | 2017-08-19 07:09 | NUR ---
RECEIVED REPORT FROM GUEST ATTENDANT NURSE CURT AT BEDSIDE FOR CONTINUITY OF CARE. PT IS AWAKE AND ORIENTED X4. INTRODUCED SELF AND UPDATED BOARD. PT WITH NON PRODUCTIVE COUGH. LUNG SOUNDS DIMINISHED. ON O2 NC 4L/MIN. O2 SAT 94%. NO SOB. NO FEVER. PT STATED HE DID NOT GET MUCH SLEEP LAST NIGHT. LEFT BREAKFAST TRAY AT BEDSIDE. DENIES PAIN. NO SIGNS OF DISTRESS. CALL LIGHT WITHIN REACH. WILL CONTINUE TO MONITOR.
[2017-08-19 07:18] LABS: BASOPHILS % (AUTO) 0.3 % (0.0-2.0); EOSINOPHILS # (AUTO) 0.1 K/uL (0-0.4); EOSINOPHILS % (AUTO) 1.1 % (0.0-4.0); HEMATOCRIT 35.1 % (36-52); HEMOGLOBIN 11.9 g/dL (12.0-18.0); LYMPHOCYTES # (AUTO) 0.6 K/uL (2.0-11.5); LYMPHOCYTES % (AUTO) 11.5 % (20.5-51.1); MEAN CORPUSCULAR HEMOGLOBIN 30 pg (27-31); MEAN CORPUSCULAR HGB CONC 34 g/dL (33-37); MEAN CORPUSCULAR VOLUME 88.9 fL (80-94); MONOCYTES # (AUTO) 0.4 K/uL (0.8-1.0); MONOCYTES % (AUTO) 7.1 % (1.7-9.3); NEUTROPHILS # (AUTO) 4.3 K/uL (1.8-7.7); PLATELET COUNT (AUTO) 257 K/uL (140-450); RED BLOOD CELL COUNT(AUTO) 3.96 MIL/uL (4.20-6.10); RED CELL DISTRIBUTION WIDTH 12.9 % (11.6-13.7); WHITE BLOOD COUNT (AUTO) 5.4 K/uL (4.8-10.8)
[2017-08-19 07:30] LABS: ANION GAP 12.6 (8-16); CARBON DIOXIDE 26.3 mmol/L (21-32); CREATININE 0.9 mg/dL (0.7-1.3); POTASSIUM 4.9 mmol/L (3.5-5.1)
[2017-08-19 08:00] VITALS: BP 106/67
[2017-08-19] MEDS: NACL 0.9% 1,000 ML IV SCH (09:58)
[2017-08-19] MEDS: SODIUM PHOS / POTASSIUM PHOS 1 PKT PDR PO SCH ×2 (10:15→17:23)
[2017-08-19] MEDS: MAGNESIUM OXIDE 400 MG TAB PO SCH ×2 (10:16→21:02)
[2017-08-19] MEDS: LACTOBACILLUS RHAMNOSUS GG 1 EACH CAP PO SCH (10:16)
[2017-08-19] MEDS: FLUCONAZOLE 100 MG TAB PO SCH (10:16)
--- NOTE | 2017-08-19 11:30 | NUR ---
CHECKED ON PT IN ROOM. FAMILY AT BEDSIDE. PT ST ON MONITOR 122. NO FEVER. PT DENIES PAIN. TALKING AND LAUGHING WITH FAMILY MEMBERS. O2 SAT 95% ON NC 4L/MIN. NO COUGHING AT THIS TIME. ASKED IF PT NEEDED ANYTHING ELSE, STATED "NO." CALL LIGHT WITHIN REACH. BED IN LOW POSITION, WHEELS LOCKED. WILL CONTINUE TO MONITOR.
[2017-08-19 12:00] VITALS: BP 114/74
[2017-08-19 16:00] VITALS: BP 112/74
[2017-08-19] MEDS ORDERED: BACTRIM IV PER PHARMACY MC PRN ×2 (16:05→16:32)
[2017-08-19] MEDS ORDERED: SODIUM CHLORIDE 1 GM TAB PO SCH (16:23)
--- NOTE | 2017-08-19 17:45 | NUR ---
PT TOOK SHOWER, ASSISTED BY FAMILY MEMBER. CHANGED LINENS. ADMINISTERED SCHEDULED MEDS. PT TOLERATED WELL.
--- NOTE | 2017-08-19 19:15 | NUR ---
ENDORSED PT TO SENIOR ELECTRICAL ENGINEER NURSE CURT AT BEDSIDE FOR CONTINUITY OF CARE. PT IN STABLE CONDITION.
--- NOTE | 2017-08-19 19:18 | NUR ---
DECREASED FIO2 TO 3L NASAL CANNULA
--- NOTE | 2017-08-19 19:20 | NUR ---
RECEIVED REPORT AT PT BEDSIDE FROM DAYS SHIFT RN, FOR CONTINUITY OF CARE. PATIENT IS A/OX4 ON 3L O2 VIA NASAL CANNULA. ABLE TO MAKE NEEDS KNOWN, ABLE TO FOLLOW COMMANDS. PT SKIN IS INTACT. PATIENT HAS 20G IV TO RIGHT AC, ASYMPTOMATIC, INTACT, PATENT. RESPIRATIONS EVEN AND UNLABORED. UPDATED BOARD. VITAL SIGNS WITHIN NORMAL LIMITS. PT STABLE, NO SIGNS OF DISTRESS NOTED AT THIS TIME. BED IN LOWEST POSITION, BED ALARM ON. CALL LIGHT WITHIN REACH, WILL CONTINUE TO MONITOR.
[2017-08-19 20:00] VITALS: BP 105/65
[2017-08-19] MEDS: LEVOFLOXACIN 750 MG/D5W PREMIX 150 ML IV SCH (21:03)
--- NOTE | 2017-08-19 21:05 | NUR ---
ADMINISTERED SCHEDULED MEDICATIONS, PT TOLERATED WELL. PT STABLE, NO SIGNS OF DISTRESS NOTED AT THIS TIME. BED IN LOWEST POSITION, BED ALARM ON. CALL LIGHT WITHIN REACH, WILL CONTINUE TO MONITOR.
[2017-08-20] VITALS: BP 92/56
[2017-08-20] MEDS: DEXTROSE 5% IV SCH ×3 (00:45→17:46)
[2017-08-20] MEDS: TRIMETH IV SCH ×3 (00:45→17:46)
[2017-08-20] MEDS: SULFAMETH IV SCH ×3 (00:45→17:46)
[2017-08-20 02:21] LABS: APPEARANCE,URINE CLEAR (CLEAR); BILIRUBIN,URINE NEGATIVE (NEGATIVE); BLOOD, URINE NEGATIVE (NEGATIVE); COLOR,URINE YELLOW (YELLOW); LEUKOCYTE ESTERASE ,URINE NEGATIVE (NEGATIVE); NITRITE, URINE NEGATIVE (NEGATIVE); UGLUCOSE NEGATIVE (NEGATIVE)
[2017-08-20 02:31] LABS: BARBITURATE, URINE NEG. ng/ml (NEG <=200); BENZODIAZEPINE, URINE NEG. ng/mL (NEG <=200); CANNABINOID, URINE NEG. ng/mL (NEG <=50); COCAINE, URINE NEG. ng/mL (NEG <=300); OPIATE, URINE NEG. ng/mL (NEG <=2000); PHENCYCLIDINE SCREEN,URINE NEG. ng/mL (NEG <=25)
[2017-08-20] MEDS: NACL 0.9% 1,000 ML IV SCH ×2 (02:38→19:18)
[2017-08-20 04:00] VITALS: BP 104/59
[2017-08-20 06:23] LABS: BASOPHILS % (AUTO) 0.3 % (0.0-2.0); EOSINOPHILS # (AUTO) 0.1 K/uL (0-0.4); HEMATOCRIT 32.9 % (36-52); HEMOGLOBIN 11.4 g/dL (12.0-18.0); LYMPHOCYTES # (AUTO) 0.6 K/uL (2.0-11.5); MEAN CORPUSCULAR HEMOGLOBIN 31 pg (27-31); MEAN CORPUSCULAR HGB CONC 35 g/dL (33-37); MEAN CORPUSCULAR VOLUME 87.8 fL (80-94); MONOCYTES # (AUTO) 0.3 K/uL (0.8-1.0); MONOCYTES % (AUTO) 6.7 % (1.7-9.3); NEUTROPHILS # (AUTO) 3.6 K/uL (1.8-7.7); PLATELET COUNT (AUTO) 262 K/uL (140-450); RED BLOOD CELL COUNT(AUTO) 3.74 MIL/uL (4.20-6.10); RED CELL DISTRIBUTION WIDTH 12.8 % (11.6-13.7); WHITE BLOOD COUNT (AUTO) 4.7 K/uL (4.8-10.8)
[2017-08-20 06:56] LABS: ANION GAP 12.1 (8-16); CARBON DIOXIDE 25.2 mmol/L (21-32); CREATININE 0.7 mg/dL (0.7-1.3); POTASSIUM 4.3 mmol/L (3.5-5.1)
--- NOTE | 2017-08-20 07:22 | NUR ---
ENDORSED PT TO DAY SHIFT RN FOR CONTINUITY OF CARE, PT IN STABLE CONDITION.
--- NOTE | 2017-08-20 07:23 | NUR ---
RECEIVED REPORT FROM TOP STOP ATTACHER NURSE. PATIENT LYING DOWN IN BED LOOKING AT HIS PHONE. NO DISTRESS NOTED. DENIES ANY PAIN. RESPIRATIONS EVEN, UNLABORED, ON O2 3L/MIN VIA NC WITH O2 SAT AT 92%. AAOX4, CALM, COOPERATIVE, SKIN COLOR APPROPRIATE TO ETHNICITY, WARM TO TOUCH. SKIN IS INTACT. LUNGS HAVE CRACKLES ON B/L BASES. ABDOMEN SOFT, NON-DISTENDED. IV SITE INTACT, PATENT, AND INFUSING IVF PER MD ORDERS. REVIEWED PLAN OF CARE WITH PATIENT. PATIENT VERBALIZED UNDERSTANDING. SAFETY MEASURES IN PLACE, CALL LIGHT WITHIN REACH. WILL CONTINUE TO MONITOR.
[2017-08-20] MEDS: ALBUTEROL SULFATE/IPRATROPIU 3 ML SOL IH SCH ×3 (07:54→19:19)
[2017-08-20] MEDS: BUDESONIDE 0.5 MG/2 ML NEBU INH SCH ×2 (07:55→19:19)
[2017-08-20 08:00] VITALS: BP 104/61
[2017-08-20] MEDS: ACETAMINOPHEN 325 MG TAB PO PRN (09:29)
[2017-08-20] MEDS: MAGNESIUM OXIDE 400 MG TAB PO SCH ×2 (09:29→20:26)
[2017-08-20] MEDS: SODIUM PHOS / POTASSIUM PHOS 1 PKT PDR PO SCH ×2 (09:29→17:45)
[2017-08-20] MEDS: LACTOBACILLUS RHAMNOSUS GG 1 EACH CAP PO SCH (09:30)
[2017-08-20] MEDS: FLUCONAZOLE 100 MG TAB PO SCH (09:30)
--- NOTE | 2017-08-20 09:35 | NUR ---
PATIENT LYING DOWN IN BED WATCHING TV. NO DISTRESS NOTED. DENIES ANY PAIN. SCHEDULED MEDICATIONS DUE GIVEN. SAFETY MEASURES IN PLACE, CALL LIGHT WITHIN REACH. WILL CONTINUE TO MONITOR.
[2017-08-20 12:00] VITALS: BP 92/62
[2017-08-20] MEDS ORDERED: SODIUM CHLORIDE 1 GM TAB PO SCH (12:00)
--- NOTE | 2017-08-20 14:30 | NUR ---
PATIENT LYING DOWN IN BED SLEEPING, AROUSABLE BY VOICE. NO DISTRESS NOTED. DENIES ANY PAIN. CONDITION UNCHANGED. SAFETY MEASURES IN PLACE, CALL LIGHT WITHIN REACH. WILL CONTINUE TO MONITOR.
--- NOTE | 2017-08-20 14:35 | NUR ---
08/20/17 RD FOLLOW UP COMPLETED PLEASE REFER TO NUTRITION PROGRESS NOTE UNDER CARE ACTIVITY FOR ESTIMATED NUTRITIONAL NEEDS. 1. CONTINUE REGULAR DIET WITH SNACKS TID TOLERATED 2. CONTINUE BOOST PLUS GIVEN EVERY DAY AT DINNER. 3. RD TO FOLLOW-UP 3-5 DAYS, MODERATE RISK SINDHU SELBY, RD
[2017-08-20 16:00] VITALS: BP 103/68
--- NOTE | 2017-08-20 17:46 | NUR ---
PATIENT LYING IN BED WATCHING TV. NO DISTRESS NOTED. DENIES ANY PAIN. SCHEDULED MEDICATIONS DUE GIVEN. NO SPUTUM SAMPLE YET. PATIENT AWARE THAT WE NEED A SPUTUM SAMPLE. SAFETY MEASURES IN PLACE, CALL LIGHT WITHIN REACH. WILL CONTINUE TO MONITOR.
--- NOTE | 2017-08-20 19:25 | NUR ---
SED PLAN OF CARE TO EXTRUDING MACHINE OPERATOR RN AT BEDSIDE. PATIENT IN STABLE CONDITION. Addendum: 08/20/17 at 1934 by Charlene Hussein Meng RN ENDORSED PLAN OF CARE TO EXTRUDING MACHINE OPERATOR RN AT BEDSIDE. PATIENT IN STABLE CONDITION.
--- NOTE | 2017-08-20 19:30 | NUR ---
ASSUMED CARE OF PATIENT, AWAKE, ALERT AND ORIENTED. NO COMPLAINS. NO DISTRESS. CALL LIGHT WITHIN REACH.
--- NOTE | 2017-08-20 20:00 | NUR ---
AFEBRILE. VITAL SIGNS STABLE. NO COMPLAINS. CALL LIGHT WITHIN REACH. PLAN OF CARE DISCUSSED WITH PATIENT, VERBALIZED UNDERSTANDING WELL.
[2017-08-20] MEDS: LEVOFLOXACIN 750 MG/D5W PREMIX 150 ML IV SCH (20:29)
--- NOTE | 2017-08-20 21:00 | NUR ---
DUE MEDS GIVEN. NO COMPLAINS. EATING OKAY. CALL LIGHT WITHIN REACH.
[2017-08-20 21:10] VITALS: BP 112/53
--- NOTE | 2017-08-20 23:38 | NUR ---
ENDORSED CARE AT BEDSIDE WITH MILTON BA , PATIENT IN STABLE CONDITION.
--- NOTE | 2017-08-20 23:40 | NUR ---
RECEIVED REPORT FROM RN. PT SLEEPING IN BED. AOOX4. NO S/S OF ACUTE DISTRESS. PT DENIES PAIN. IV SITE PATENT AND INTACT. CALL LIGHT WITHIN REACH. SAFETY MEASURES ENSURED. WILL CONTINUE TO MONITOR.
[2017-08-21] VITALS: BP 116/56
[2017-08-21] MEDS: DEXTROSE 5% IV SCH ×3 (00:49→17:28)
[2017-08-21] MEDS: SULFAMETH IV SCH ×3 (00:49→17:28)
[2017-08-21] MEDS: TRIMETH IV SCH ×3 (00:49→17:28)
[2017-08-21 04:00] VITALS: BP 110/60
--- NOTE | 2017-08-21 05:49 | NUR ---
PT SLEEPING IN BED. NO S/S OF ACUTE DISTRESS. WILL CONTINUE TO MONITOR.
[2017-08-21 06:32] LABS: BASOPHILS % (AUTO) 0.4 % (0.0-2.0); EOSINOPHILS # (AUTO) 0.2 K/uL (0-0.4); EOSINOPHILS % (AUTO) 4.2 % (0.0-4.0); HEMATOCRIT 32.6 % (36-52); HEMOGLOBIN 11.1 g/dL (12.0-18.0); LYMPHOCYTES # (AUTO) 0.5 K/uL (2.0-11.5); LYMPHOCYTES % (AUTO) 10.9 % (20.5-51.1); MEAN CORPUSCULAR HEMOGLOBIN 30 pg (27-31); MEAN CORPUSCULAR HGB CONC 34 g/dL (33-37); MEAN CORPUSCULAR VOLUME 88.7 fL (80-94); MONOCYTES # (AUTO) 0.3 K/uL (0.8-1.0); MONOCYTES % (AUTO) 7.1 % (1.7-9.3); NEUTROPHILS # (AUTO) 3.5 K/uL (1.8-7.7); NEUTROPHILS % (AUTO) 77.4 % (42.2-75.2); PLATELET COUNT (AUTO) 266 K/uL (140-450); RED BLOOD CELL COUNT(AUTO) 3.68 MIL/uL (4.20-6.10); RED CELL DISTRIBUTION WIDTH 12.9 % (11.6-13.7); WHITE BLOOD COUNT (AUTO) 4.5 K/uL (4.8-10.8)
[2017-08-21 06:48] LABS: CARBON DIOXIDE 25.3 mmol/L (21-32); CREATININE 0.8 mg/dL (0.7-1.3); POTASSIUM 4.3 mmol/L (3.5-5.1)
[2017-08-21 06:51] LABS: PHOSPHORUS 3.6 mg/dL (2.5-4.9)
[2017-08-21] MEDS: ALBUTEROL SULFATE/IPRATROPIU 3 ML SOL IH SCH ×3 (07:15→19:24)
[2017-08-21] MEDS: BUDESONIDE 0.5 MG/2 ML NEBU INH SCH ×2 (07:24→19:24)
--- NOTE | 2017-08-21 07:28 | NUR ---
ENDORSED PLAN OF CARE TO RN. PT REMAINS STABLE.
[2017-08-21 08:00] VITALS: BP 125/63
--- NOTE | 2017-08-21 08:00 | NUR ---
INITIAL ASSESSMENT PERFORMED. PATIENT ALERT AND ABLE TO VERBALIZE NEEDS. NO ACUTE DISTRESS NOTED. PATIENT CONT ON O2 @3L/MIN VIA NC. BOWEL SOUNDS ACTIVE X4 QUADS. LUNG SOUNDS DIMINISHED THROUGHOUT. PATIENT CONT ON REGULAR DIET WITH FLUID RESTRICTION 2000ML/DAY, PATIENT ON NS @60ML/HR TO RAC 20G. PATENT AND INTACT. PATIENT USES URINAL AT BEDSIDE.CONTINUE TO WAIT FOR 3RD SPUTUM SPECIMEN TO R/O TB. PATIENT STATES HE IS HAVING DIFFICULTY IN HAVING PRODUCTIVE COUGH. DISCUSSED PLAN OF CARE WITH PATIENT AT BEDSIDE.BOARD UPDATED. PT CONT ON AIRBORNE PRECAUTIONS. CALL LIGHT WITHIN REACH. WILL CONT TO MONITOR.
[2017-08-21] MEDS: SODIUM PHOS / POTASSIUM PHOS 1 PKT PDR PO SCH ×2 (09:15→17:28)
[2017-08-21] MEDS: SODIUM CHLORIDE 1 GM TAB PO SCH (09:16)
[2017-08-21] MEDS: LACTOBACILLUS RHAMNOSUS GG 1 EACH CAP PO SCH (09:16)
[2017-08-21] MEDS: MAGNESIUM OXIDE 400 MG TAB PO SCH ×2 (09:16→20:35)
--- NOTE | 2017-08-21 10:30 | NUR ---
PATIENT ALERT AND ABLE TO VERBALIZE NEEDS. NO ACUTE DISTRESS.WILL CONT TO MONITOR.
[2017-08-21] MEDS: NACL 0.9% 1,000 ML IV SCH (11:30)
[2017-08-21 12:00] VITALS: BP 115/68
--- NOTE | 2017-08-21 12:30 | NUR ---
PATIENT ALERT AND ABLE TO VERBALIZE NEEDS. NO ACUTE DISTRESS. PATIENT WITH AT BEDSIDE. CALL LIGHT WITHIN REACH. WILL CONT TO MONITOR.
--- NOTE | 2017-08-21 13:23 | NUR ---
PT IS SLEEP HHN NOT GIVEN NO APPARENT SOB
--- NOTE | 2017-08-21 15:00 | NUR ---
PATIENT ALERT AND ABLE TO MAKE NEEDS KNOWN. NO ACUTE DISTRESS NOTED. CONT ON AIRBORNE PRECAUTIONS. CALL LIGHT WITHIN REACH. WILL CONT TO MONITOR.
[2017-08-21 16:00] VITALS: BP 110/66
--- NOTE | 2017-08-21 17:30 | NUR ---
PATIENT ALERT IN ROOM WATCHING TV IN BED. NO C/O PAIN . CONT ON AIRBORNE ISOLATION PENDING SPUTUM RESULTS SENT THIS AM. CALL LIGHT WITHIN REACH. WILL CONT TO MONITOR.
--- NOTE | 2017-08-21 19:20 | NUR ---
ENDORSED REPORT TO WOOD PATTERNMAKER NURSE AT BEDSIDE FOR CONTINUITY OF CARE. PATIENT STABLE.
--- NOTE | 2017-08-21 19:22 | NUR ---
RECEIVED REPORT FROM NIGHT RN. PT RESTING IN BED. AAOX4. NO S/S OF ACUTE DISTRESS. PT DENIES PAIN. IV SITE PATENT AND INTACT. ON O2 3L NC. CALL LIGHT WITHIN REACH. SAFETY MEASURES ENSURED. WILL CONTINUE TO MONITOR.
[2017-08-22] VITALS: BP 111/65
--- NOTE | 2017-08-22 00:02 | NUR ---
PT SLEEPING IN BED. NO S/S OF ACUTE DISTRESS. PT DENIES PAIN. CALL LIGHT WITHIN REACH. WILL CONTINUE TO MONITOR.
[2017-08-22] MEDS: DEXTROSE 5% IV SCH ×3 (00:15→17:00)
[2017-08-22] MEDS: TRIMETH IV SCH ×3 (00:15→17:00)
[2017-08-22] MEDS: SULFAMETH IV SCH ×3 (00:15→17:00)
--- NOTE | 2017-08-22 04:29 | NUR ---
PT SLEEPING IN BED. NO S/S OF ACUTE DISTRESS. WILL CONTINUE TO MONITOR.
[2017-08-22] MEDS: ALBUTEROL SULFATE/IPRATROPIU 3 ML SOL IH SCH ×3 (06:46→20:16)
[2017-08-22] MEDS: BUDESONIDE 0.5 MG/2 ML NEBU INH SCH ×2 (06:53→20:16)
[2017-08-22 07:22] LABS: HEMOGLOBIN 12.3 g/dL (12.0-18.0)
--- NOTE | 2017-08-22 07:30 | NUR ---
REPORT RECEIVED FROM EMERGENCY ROOM CLINICIAN NURSE, PT SLEEPING QUIETLY IN NAD, AROUSES EASILY, RESP EVEN UNLABORED ON 2L NC O2, PT DENIES PAIN OR DISCOMFORT, PLAN OF CARE REVIEWED, PT DENIES ANY IMMEDIATE NEEDS, ALL SAFETY MEASURES IN PLACE, WILL CONTINUE TO MONITOR
[2017-08-22 07:31] LABS: MEAN CORPUSCULAR HEMOGLOBIN 30 pg (27-31); MEAN CORPUSCULAR HGB CONC 34 g/dL (33-37); MEAN CORPUSCULAR VOLUME 88.1 fL (80-94); PLATELET COUNT (AUTO) 265 K/uL (140-450); RED BLOOD CELL COUNT(AUTO) 4.08 MIL/uL (4.20-6.10); RED CELL DISTRIBUTION WIDTH 12.9 % (11.6-13.7); WHITE BLOOD COUNT (AUTO) 4.9 K/uL (4.8-10.8)
[2017-08-22 07:39] LABS: ANION GAP 12.3 (8-16); CREATININE 0.8 mg/dL (0.7-1.3); POTASSIUM 4.3 mmol/L (3.5-5.1)
[2017-08-22 08:00] VITALS: BP 110/58
[2017-08-22 08:34] LABS: LYMPHOCYTES % (MANUAL) 13 % (20-46); MONOCYTES % (MANUAL) 5 % (5-12)
[2017-08-22 08:35] LABS: EOSINOPHILS % (MANUAL) 2 % (0-4)
[2017-08-22] MEDS: SODIUM CHLORIDE 1 GM TAB PO SCH (09:19)
[2017-08-22] MEDS: LACTOBACILLUS RHAMNOSUS GG 1 EACH CAP PO SCH (09:20)
[2017-08-22] MEDS: MAGNESIUM OXIDE 400 MG TAB PO SCH ×2 (09:20→21:41)
[2017-08-22] MEDS: ACETAMINOPHEN 325 MG TAB PO PRN (09:20)
[2017-08-22] MEDS: SODIUM PHOS / POTASSIUM PHOS 1 PKT PDR PO SCH ×2 (09:20→17:00)
--- NOTE | 2017-08-22 09:28 | NUR ---
AM MEDS GIVEN PT NADIA PO WELL, IV ABX STARTED, IV SITE WNL, PT EDUCATED ON USE OF INCENTIVE SPIROMETER, PT RETURN DEMONSTRATES WITH GOOD TECHNIQUE, PT DENIES ANY IMMEDIATE NEEDS, WILL CONTINUE TO MONTIOR.
[2017-08-22] MEDS ORDERED: methylPREDNISolone SS 40 MG/ML VIAL IVP SCH (09:30)
--- NOTE | 2017-08-22 12:22 | NUR ---
PT SITTING UP BED TALKING WITH VISITOR IN NAD, PT USING INCENTIVE SPIROMETER, O2 SAT 94 ON 2L NOW, NADIA WELL, WILL REDUCE TO 1L, TEMP 98.9, HR 109, DENIES ANY IMMEDIATE NEEDS, WILL CONTINUE TO MONITOR.
--- NOTE | 2017-08-22 15:37 | NUR ---
PT SITTING UP IN BED, RESTING QUIETLY IN NAD, O2SAT 92% ON ROOM AIR, RESP EVEN UNALBORED, WILL NOTIFY MD THAT PT IS TOLERATING OFF OXYGEN.
[2017-08-22 16:00] VITALS: BP 121/64
--- NOTE | 2017-08-22 19:15 | NUR ---
REPORT GIVEN TO ANISA BA, PT IN STABLE CONDITION
--- NOTE | 2017-08-22 19:16 | NUR ---
RECEIVED REPORT FROM DAY SHIFT NURSE HEATH-RN. PT RESTING IN BED. AAOX4, ON ROOM AIR, IV RIGHT AC 20G- PATENT AND INTACT. DISCUSSED PLAN OF CARE AND PT VERBALIZED UNDERSTANDING. NO S/S OF RESPIRATORY DISTRESS OR DISCOMFORT NOTED AT THIS TIME. WHITE BOARD UPDATED. BED IN LOWEST POSITION, BED BREAKS ON, SIDE RAILS UP. BED SIDE TABLE AND CALL LIGHT WITHIN REACH. WILL CONTINUE TO MONITOR.
[2017-08-22 20:00] VITALS: BP 108/71
--- NOTE | 2017-08-22 20:00 | NUR ---
VITAL SIGNS TAKEN AND TOLERATED WELL. WILL CONTINUE TO MONITOR.
--- NOTE | 2017-08-22 21:30 | NUR ---
DR. VALENTINO ENTERED ORDERS UNDER "ADDITIONAL ORDERS" RALTEGRAVIR 400MG PO Q12HR HOWEVER PHARMACY HAS NOT ADDED IT TO THE [facility]. CALLED PHARMACY AND THEY ARE UNABLE TO PLACE ORDER IN BECAUSE IT IS UNAVAILABLE ON UNIT. SPOKE WITH PHARMACY AND IS AWARE. WOULD LIKE MEDICATION TO BE GIVEN SOON POSSIBLE. DRIVER SALESMAN RUTHY AWARE AND LOOKING FOR MEDICATION IN PHARMACY.
[2017-08-22] MEDS: methylPREDNISolone SS 40 MG/ML VIAL IVP SCH (21:41)
--- NOTE | 2017-08-22 21:43 | NUR ---
SCHEDULED MEDICATION GIVEN AND TOLERATED WELL. PT RESTING IN BED. NO S/S OF RESPIRATORY DISTRESS OR DISCOMFORT. WILL CONTINUE TO MONITOR.
--- NOTE | 2017-08-22 22:40 | NUR ---
REPAIRER [employer] RUTHY CONTACTED [facility] AND IS UNABLE TO GET MEDICATION UNTIL POSSIBLY TOMORROW MORNING. THIS MEDICATION IS NOT AVAILABLE IN OUR PHARMACY. CHARGE NURSE GAVINO SPOKE WITH DR. VALENTINO AND IS AWARE OF THE SITUATION. SOON IT IS AVAILABLE IT IS TO BE GIVEN.
[2017-08-23] VITALS: BP 116/73
[2017-08-23] MEDS: SULFAMETH IV SCH ×2 (00:39→10:12)
[2017-08-23] MEDS: TRIMETH IV SCH ×2 (00:39→10:12)
[2017-08-23] MEDS: DEXTROSE 5% IV SCH ×2 (00:39→10:12)
--- NOTE | 2017-08-23 00:40 | NUR ---
VITAL SIGNS TAKEN, SCHEDULED MEDICATION GIVEN AND TOLERATED WELL. NO S/S OF RESPIRATORY DISTRESS OR DISCOMFORT NOTED AT THIS TIME. WILL CONTINUE TO MONITOR.
--- NOTE | 2017-08-23 02:00 | NUR ---
PT RESTING IN BED AT THIS TIME. NO S/S OF RESPIRATORY DISTRESS OR DISCOMFORT NOTED AT THIS TIME. WILL CONTINUE TO MONITOR.
--- NOTE | 2017-08-23 04:00 | NUR ---
PT RESTING AT THIS TIME. NO S/S OF RESPIRATORY DISTRESS OR DISCOMFORT NOTED AT THIS TIME. WILL CONTINUE TO MONITOR.
--- NOTE | 2017-08-23 06:00 | NUR ---
PT CONTINUES TO REST IN BED. NO S/S OF RESPIRATORY DISTRESS OR DISCOMFORT NOTED AT THIS TIME. WILL CONTINUE TO MONITOR.
[2017-08-23 07:00] LABS: BASOPHILS % (AUTO) 0.1 % (0.0-2.0); HEMATOCRIT 35.3 % (36-52); HEMOGLOBIN 12.3 g/dL (12.0-18.0); LYMPHOCYTES # (AUTO) 0.4 K/uL (2.0-11.5); LYMPHOCYTES % (AUTO) 14.3 % (20.5-51.1); MEAN CORPUSCULAR HEMOGLOBIN 30 pg (27-31); MEAN CORPUSCULAR HGB CONC 35 g/dL (33-37); MEAN CORPUSCULAR VOLUME 87.1 fL (80-94); MONOCYTES # (AUTO) 0.2 K/uL (0.8-1.0); MONOCYTES % (AUTO) 7.3 % (1.7-9.3); NEUTROPHILS # (AUTO) 2.2 K/uL (1.8-7.7); NEUTROPHILS % (AUTO) 78.3 % (42.2-75.2); PLATELET COUNT (AUTO) 262 K/uL (140-450); RED BLOOD CELL COUNT(AUTO) 4.05 MIL/uL (4.20-6.10); WHITE BLOOD COUNT (AUTO) 2.9 K/uL (4.8-10.8)
[2017-08-23] MEDS: ALBUTEROL SULFATE/IPRATROPIU 3 ML SOL IH SCH ×2 (07:00→12:56)
--- NOTE | 2017-08-23 07:05 | NUR ---
ENDORSED PT CARE TO DAY SHIFT NURSE ANUM-JESENIA AND CALI FOR CONTINUITY OF CARE.
--- NOTE | 2017-08-23 07:06 | NUR ---
RECEIVED PT FROM MODEL MAKER [employer]REAR[employer] NURSE AT BEDSIDE. PT A/O X4. NO SIGNS AND SYMPTOMS OF DISTRESS NOTED AT THIS TIME. IV SITE R AC 20G RUNNING NS TKO. SITE IS PATENT AND INTACT. DISCUSSED PLAN OF CARE WITH PT. PT VERBALIZED UNDERSTANDING. BED IN LOWEST POSITION. SIDE RAILS UP X2. CALL LIGHT WITHIN REACH. WILL CONTINUE TO MONITOR.
[2017-08-23 07:18] LABS: ANION GAP 14.7 (8-16); CREATININE 0.7 mg/dL (0.7-1.3); POTASSIUM 4.7 mmol/L (3.5-5.1)
[2017-08-23 07:34] LABS: MAGNESIUM 2.1 mg/dL (1.8-2.4); PHOSPHORUS 4.5 mg/dL (2.5-4.9)
[2017-08-23] MEDS: BUDESONIDE 0.5 MG/2 ML NEBU INH SCH (07:34)
[2017-08-23 08:00] VITALS: BP 116/73
[2017-08-23] MEDS: MAGNESIUM OXIDE 400 MG TAB PO SCH (08:22)
[2017-08-23] MEDS: SODIUM PHOS / POTASSIUM PHOS 1 PKT PDR PO SCH (08:22)
[2017-08-23] MEDS: LACTOBACILLUS RHAMNOSUS GG 1 EACH CAP PO SCH (08:22)
[2017-08-23] MEDS: methylPREDNISolone SS 40 MG/ML VIAL IVP SCH (08:24)
[2017-08-23] MEDS: SODIUM CHLORIDE 1 GM TAB PO SCH (08:24)
--- NOTE | 2017-08-23 08:45 | NUR ---
ADMINISTERED MORNING MEDS TO PT. PT TOLERATED WELL. CHECKED VS AND WITHIN NORMAL LIMITS. SPOKE WITH PT ABOUT TRYING TO AMBULATE HALLWAY TODAY. PT EXPRESSED UNDERSTANDING.
[2017-08-23] MEDS ORDERED: EMTRICITABINE/TENOFOVIR 200-300MG 1 TAB PO SCH (09:00)
[2017-08-23] MEDS ORDERED: AZITHROMYCIN SUSP 200 MG/5 ML PO SCH (09:00)
[2017-08-23] MEDS ORDERED: AZIT200P14 PO (11:17)
[2017-08-23] MEDS ORDERED: SULF-58 PO (11:28)
--- NOTE | 2017-08-23 11:45 | NUR ---
PT IS RESTING COMFORTABLY. FAMILY IS AT BEDSIDE. WILL CONTINUE TO MONITOR.
[2017-08-23] MEDS ORDERED: SULF1TAB12 PO (15:26)
[2017-08-23] MEDS ORDERED: EMTR1TAB12 PO (15:27)
[2017-08-23] MEDS ORDERED: RALT400T PO (15:27)
[2017-08-23 15:59] VITALS: BP 118/78
--- NOTE | 2017-08-23 16:02 | NUR ---
Supervisor [employer] Note: and I met with patient at bedside. Per patient, he is sure he has [employer] coverage as of August 17, 2017. He stated he is sure [employer] mailed him health insurance card to his home. He stated once he gets home he will review his mail and look for health insurance card. I emphasized to him the importance of him contacting [employer] and requesting to be assign to a primary care physician so he can follow up with a physician post discharge. He verbalized understanding and stated he will contact [employer]. He also stated he will provide hospital with health insurance information once he finds it in order for hospital to update record. He stated he did not have any questions or concerns at this time.
--- NOTE | 2017-08-23 17:00 | NUR ---
DISCHARGE ORDER IS IN PLACE. INFORMED PATIENT TO READ UP ON THE CARE PLAN GOAL THAT THE DOCTOR WROTE DUE IT BEING LENGTHY. INFORMED HIM OF APPOINTMENT MADE FOR HIM AT [facility], ALSO THAT HE HAS A COUPLE OF PRESCRIPTIONS, EDUCATION HAS BEEN PROVIDED ABOUT HIS CONDITION, AND RESOURCES HAVE BEEN PROVIDED. A DOCTORS NOTE HAS BEEN PROVIDED TO BE EXCUSED FROM WORK. I EDUCATED PATIENT ON IMPORTANCE OF SEEKING EMERGENCY MEDICAL ATTENTION IF HAVING ANY WORSENING SYMPTOMS. PATIENT VERBALIZED UNDERSTANDING. ALL BELONGINGS HAVE BEEN COLLECTED BY PATIENTS FAMILY. IV REMOVED FROM SITE. SITE IS CLEAN AND DRY. PATIENT HAS NO SIGNS AND SYMPTOMS OF ACUTE DISTRESS NOTED AT THIS TIME. WILL WHEEL PATIENT OUT.
[2017-08-24 08:19] LABS: HEPATITIS A ANTIBODY IGM Negative (Negative); HEPATITIS B CORE AB TOTAL Negative (Negative); HEPATITIS B SURFACE ANTIBODY Non Reactive (.); HEPATITIS B SURFACE ANTIGEN Negative (Negative)
[2017-08-25 06:21] LABS: CHLAMYDIA TRACHOMATIS AMP DNA Negative (Negative)
== END 2017-08-23 17:00 | disposition home or self-care (01) | DRG 974 ==
LOC: MED 17:59 → MTU 20:42
PROVIDERS: ADMIT General Practice; ATTEND General Practice
DX: B20 Human immunodeficiency virus [HIV] disease (principal); J18.9 Pneumonia, unspecified organism; E43 Unspecified severe protein-calorie malnutrition; B59 Pneumocystosis; C18.9 Malignant neoplasm of colon, unspecified; E87.1 Hypo-osmolality and hyponatremia; K92.1 Melena; Z68.1 Body mass index [BMI] 19.9 or less, adult; B37.0 Candidal stomatitis; K92.2 Gastrointestinal hemorrhage, unspecified; R73.03 Prediabetes; E83.39 Other disorders of phosphorus metabolism; F10.11 Alcohol abuse, in remission; E83.42 Hypomagnesemia; F17.210 Nicotine dependence, cigarettes, uncomplicated; E87.8 Other disorders of electrolyte and fluid balance, not elsewhere classified; E83.51 Hypocalcemia; Z87.891 Personal history of nicotine dependence; Z72.52 High risk homosexual behavior
CPT/HCPCS: 36415; 71045; 80048; 80053; 80305; 81003; 82150; 83036; 83605; 83690; 83735; 83880; 84100; 84436; 84439; 84443; 84479; 85025; 85610; 85730; 86360; 86592; 86702; 86704; 86706; 86708; 86709; 86803; 87040; 87045; 87070; 87081; 87116; 87190; 87205; 87206; 87340; 87491; 87536; 89055; 94640; 96361; 96365; 96375; 99285; J1885; J1956; J2405; J2543; J2920; J3370; J3490; J7030; J7060; J7620; J7626; Q0092; S0119